=== PATIENT | male | born 1930 | race Caucasian/White ===

== ENCOUNTER 2017-02-24 13:13 | Inpatient (IN) | payer MEDICARE, OTHER ==
[~2017-02-24] VITALS: Ht 170.2 cm; Wt 93.4 kg
[~2017-02-24 13:13] MED LIST: ACET-2154 PO; ASPI81TA31 PO; ATOR20TA PO; BENZ1LOZ PO; CARB-95 PO; CHOL100043 PO; CLOP75TA15 PO; DIVA250T PO; ESCI10TA PO; GABA600T2 PO; HYDR-3326 PO; INSU100C4 SQ; LORA0.5T48 PO; MAGN400T6 PO; NITR0.4T SL; PANT20TA2 PO; ROPI4TAB4 PO; SULF1TAB48 PO; TRAM50TA2 PO
[2017-02-24 13:51] LABS: BASOPHILS % (AUTO) 0.5 % (0.0-2.0); CARBON DIOXIDE 29 mmol/L (21-32); CHLORIDE 106 mmol/L (98-107); CREATININE 1.5 mg/dL (0.6-1.3); EOSINOPHILS # (AUTO) 0.2 K/uL (0.0-0.7); EOSINOPHILS % (AUTO) 3.4 % (0.0-7.0); GLUCOSE 224 mg/dL (74-106); HEMATOCRIT 24.9 % (40-50); HEMOGLOBIN 8.2 G/DL (14.0-18.0); LYMPHOCYTES # (AUTO) 1.5 K/UL (0.8-4.8); LYMPHOCYTES % (AUTO) 25.1 % (20.5-51.5); MEAN CORPUSCULAR HGB CONC 33 g/dL (32.0-37.0); MEAN CORPUSCULAR VOLUME 82.4 FL (82.0-92.0); MONOCYTES # (AUTO) 0.5 K/UL (0.1-1.30); MONOCYTES % (AUTO) 7.7 % (0.0-11.0); NEUTROPHILS # (AUTO) 3.7 K/UL (1.8-8.9); NEUTROPHILS % (AUTO) 63.3 % (38.5-71.5); PLATELET COUNT (AUTO) 264 K/UL (150-450); RED BLOOD CELL COUNT(AUTO) 3.02 MIL/UL (4.7-6.1); UREA NITROGEN, BLOOD 42 mg/dL (7-18); WHITE BLOOD COUNT (AUTO) 5.9 K/UL (4.0-11.2)
[2017-02-24 14:01] LABS: ETHANOL < 3 MG/DL (0-0)
[2017-02-24 14:02] LABS: ACETAMINOPHEN 3.8 ug/mL (10-30); ALANINE AMINOTRANSFERASE 7 U/L (16-63); ALKALINE PHOSPHATASE 107 U/L (50-136); ASPARTATE AMINOTRANSFERASE 15 U/L (15-37); BILIRUBIN,DIRECT 0.1 mg/dL (0.0-0.2); BILIRUBIN,TOTAL 0.2 mg/dL (0.2-1.0); TOTAL PROTEIN, SERUM 7.1 g/dL (6.4-8.2)
[2017-02-24] MEDS ORDERED: IV NORMAL SALINE 500 ML BAG IV ONE (14:15)
--- NOTE | 2017-02-24 14:36 | NUR ---
PT IS MEDICALLY CLEARED BY DR AGUILAR.
--- NOTE | 2017-02-24 14:44 | NUR ---
[facility] CALLED FOR PSYCH EVAL, ETA 45 MIN.
--- NOTE | 2017-02-24 15:03 | NUR ---
URINAL PROVIDED, PT IS HELPED TO USE URINAL, UNABLE TO COLLECT URINE. AWARE.
[2017-02-24] MEDS ORDERED: LEVO25TA9 PO (15:10)
[2017-02-24] MEDS ORDERED: HYDR-4076 PO (15:10)
[2017-02-24] MEDS ORDERED: WARF1TAB47 PO (15:10)
[2017-02-24] MEDS ORDERED: FERR-58 PO (15:10)
[2017-02-24] MEDS ORDERED: INSU100V7 SQ (15:10)
[2017-02-24] MEDS ORDERED: SENN-167 PO (15:10)
[2017-02-24] MEDS ORDERED: OMEP20TA5 PO (15:10)
[2017-02-24] MEDS ORDERED: LIDO30AD10 TD (15:10)
[2017-02-24] MEDS ORDERED: CLON0.1T PO (15:10)
[2017-02-24] MEDS ORDERED: DICL100G31 TP (15:10)
[2017-02-24] MEDS ORDERED: POLY17PO4 PO (15:10)
--- NOTE | 2017-02-24 15:23 | NUR ---
Patient is resting comfortably in bed with eyes closed, NAD noted.
--- NOTE | 2017-02-24 15:37 | NUR ---
ANA FROM PET AT THE BEDSIDE FOR PSYCH EVAL.
[2017-02-24 16:45] VITALS: BP 176/62
--- NOTE | 2017-02-24 16:45 | NUR ---
PT ARRIVED TO UNIT ON GURNEY ACCOMPANIED BY ER NURSE. PT VERY CONFUSED AND DISORIENTED, ASKING FOR BREAKFAST AT THIS TIME. AOX1 TO SELF ONLY. NO AGGRESSIVE OR COMBATIVE BEHAVIOR NOTED AT THIS TIME. PT WILL BE PLACED IN ROOM 139A.
[2017-02-24] MEDS ORDERED: TEMAZEPAM 7.5 MG CAPSULE PO PRN (17:15)
[2017-02-24] MEDS ORDERED: MAGNESIUM HYDROXIDE 30 ML LIQUID UDC PO PRN (17:15)
[2017-02-24] MEDS ORDERED: MAG HYDROX/AL HYDROX/SIMETH 30 ML LIQUID UDC PO PRN (17:15)
[2017-02-24 19:58] VITALS: BP 192/61
[2017-02-24] MEDS: ACETAMINOPHEN 325 MG TABLET PO PRN (20:00)
[2017-02-24] MEDS: LORAZEPAM 1 MG TABLET PO PRN (20:00)
[2017-02-25] MEDS: LORAZEPAM 1 MG TABLET PO PRN (01:02)
--- NOTE | 2017-02-25 07:19 | NUR ---
PATIENT THREW BILATERAL HEARING AIDS ON THE FLOOR, AND BROKE EYE GLASSES. PLACED IN LOCKER WITH NAME.
[2017-02-25 07:30] VITALS: BP 189/79
[2017-02-25] MEDS ORDERED: DICLOFENAC SODIUM XX PRN (09:00)
[2017-02-25] MEDS ORDERED: HYDROCODONE/APAP 5-325MG TABLET PO PRN (09:00)
[2017-02-25] MEDS ORDERED: GABAPENTIN 300 MG CAPSULE PO SCH (09:00)
[2017-02-25] MEDS ORDERED: ACETAMINOPHEN 325 MG TABLET PO PRN (09:00)
[2017-02-25] MEDS: MAGNESIUM OXIDE 400 MG TABLET PO SCH ×2 (10:34→17:28)
[2017-02-25] MEDS: LIDOCAINE 5% PATCH TD SCH (10:34)
[2017-02-25] MEDS: CHOLECALCIFEROL 1,000 UNIT TABLET PO SCH (10:34)
[2017-02-25] MEDS: ropiniROLE 1 MG TABLET PO SCH ×3 (10:34→17:28)
[2017-02-25] MEDS: CARBIDOPA/LEVODOPA CR 25-100MG TABLET.SA PO SCH ×3 (10:34→17:35)
[2017-02-25] MEDS: LEVOTHYROXINE SODIUM 25 MCG TABLET PO SCH (10:34)
[2017-02-25] MEDS: ASPIRIN 81 MG TAB.CHEW PO SCH (10:35)
[2017-02-25] MEDS: SENNOSIDES 1 TABLET PO SCH ×2 (10:35→17:28)
[2017-02-25] MEDS: FERROUS SULFATE 325 MG TABEC PO SCH ×3 (10:35→17:28)
[2017-02-25] MEDS: CLONIDINE HCL 0.1 MG TABLET PO SCH ×2 (10:35→21:00)
[2017-02-25] MEDS: hydrALAZINE HCL 25 MG TABLET PO SCH ×2 (10:35→21:00)
[2017-02-25] MEDS: INSULIN LISPRO 1000 UNITS/10 ML VIAL(HUMALOG) SQ SCH ×2 (11:30→16:30)
[2017-02-25] MEDS: GABAPENTIN 400 MG CAPSULE PO SCH ×2 (13:12→17:28)
--- NOTE | 2017-02-25 15:52 | NUR ---
PT CURRENTLY SITTING ON QING-CHAIR, HIGHLY COMBATIVE, HITTING STAFF, YELLING/SCREAMING PROFANITIES "YOU BITCH" "YOU PIECE OF SHIT". VERBALLY ABUSIVE "I HOPE YOU OF CANCER." HIGHLY AGITATED AND AGGRESSIVE. PT HAS BM, PUTTING HIS HANDS INSIDE HIS PANTS, SMEARING HIS FECES AROUND AND PLACING HIS HANDS IN HIS MOUTH. PT ALSO THREATENING TO KILL STAFF WITH A SHOTGUN. CALLED DR. BRENNAN, ORDERED ZYPREXA 5MG IM ATIVAN 1MG IM NOW. NOTED AND WILL CARRY OUT.
[2017-02-25] MEDS ORDERED: LORAZEPAM 2 MG/1 ML VIAL IM ONE (16:00)
[2017-02-25] MEDS ORDERED: OLANZAPINE 10 MG VIAL IM ONE (16:00)
[2017-02-25 16:52] VITALS: BP 166/69
[2017-02-25] MEDS ORDERED: WARFARIN SODIUM 1 MG TABLET PO SCH (17:00)
[2017-02-25] MEDS ORDERED: WARFARIN SODIUM 3 MG TABLET PO SCH (17:00)
[2017-02-25 20:00] VITALS: BP 133/55
[2017-02-25] MEDS: DIVALPROEX 250 MG TABLET.DR PO SCH (21:00)
[2017-02-25] MEDS: INSULIN DETEMIR 300 UNIT/3 ML CARTRIDGE SQ SCH (21:00)
[2017-02-25] MEDS: PANTOPRAZOLE SODIUM 40 MG TABLET.DR PO SCH (21:00)
[2017-02-25] MEDS: ATORVASTATIN 20 MG TABLET PO SCH (21:00)
[2017-02-25] MEDS: MIRALAX 17 GM POWD.PACK PO SCH (21:00)
[2017-02-25] MEDS: QUETIAPINE FUMARATE 25 MG TABLET PO SCH (21:00)
[2017-02-26] MEDS: LEVOTHYROXINE SODIUM 25 MCG TABLET PO SCH (06:40)
[2017-02-26 07:27] LABS: BASOPHILS % (AUTO) 0.2 % (0.0-2.0); EOSINOPHILS # (AUTO) 0.3 K/uL (0.0-0.7); HEMATOCRIT 27.7 % (40-50); HEMOGLOBIN 9.2 G/DL (14.0-18.0); LYMPHOCYTES # (AUTO) 1.2 K/UL (0.8-4.8); MEAN CORPUSCULAR HEMOGLOBIN 27.3 UUG (27.0-31.0); MEAN CORPUSCULAR HGB CONC 33 g/dL (32.0-37.0); MEAN CORPUSCULAR VOLUME 82.5 FL (82.0-92.0); MONOCYTES # (AUTO) 0.7 K/UL (0.1-1.30); MONOCYTES % (AUTO) 9.1 % (0.0-11.0); NEUTROPHILS # (AUTO) 5.1 K/UL (1.8-8.9); NEUTROPHILS % (AUTO) 70.7 % (38.5-71.5); PLATELET COUNT (AUTO) 277 K/UL (150-450); RED BLOOD CELL COUNT(AUTO) 3.36 MIL/UL (4.7-6.1); WHITE BLOOD COUNT (AUTO) 7.3 K/UL (4.0-11.2)
[2017-02-26 07:30] VITALS: BP 167/67
[2017-02-26 08:03] LABS: THYROID STIMULATING HORMONE 4.44 mIU/mL (0.358-3.740)
[2017-02-26] MEDS: CHOLECALCIFEROL 1,000 UNIT TABLET PO SCH (09:07)
[2017-02-26] MEDS: FERROUS SULFATE 325 MG TABEC PO SCH ×3 (09:07→18:19)
[2017-02-26] MEDS: DIVALPROEX 250 MG TABLET.DR PO SCH ×2 (09:07→20:45)
[2017-02-26] MEDS: ASPIRIN 81 MG TAB.CHEW PO SCH (09:07)
[2017-02-26] MEDS: GABAPENTIN 400 MG CAPSULE PO SCH ×3 (09:08→18:19)
[2017-02-26] MEDS: CLONIDINE HCL 0.1 MG TABLET PO SCH ×2 (09:08→20:55)
[2017-02-26] MEDS: CARBIDOPA/LEVODOPA CR 25-100MG TABLET.SA PO SCH ×3 (09:09→18:19)
[2017-02-26] MEDS: hydrALAZINE HCL 25 MG TABLET PO SCH ×2 (09:09→20:55)
[2017-02-26] MEDS: ESCITALOPRAM OXALATE 10 MG TABLET PO SCH (09:09)
[2017-02-26] MEDS: MAGNESIUM OXIDE 400 MG TABLET PO SCH ×2 (09:11→18:19)
[2017-02-26] MEDS: QUETIAPINE FUMARATE 25 MG TABLET PO SCH ×3 (09:15→20:45)
[2017-02-26] MEDS: SENNOSIDES 1 TABLET PO SCH ×2 (09:16→18:19)
[2017-02-26] MEDS: ropiniROLE 1 MG TABLET PO SCH ×3 (09:16→18:38)
[2017-02-26] MEDS: LIDOCAINE 5% PATCH TD SCH (09:17)
[2017-02-26 09:24] LABS: IRON, SERUM 33 ug/dL (50-175)
[2017-02-26] MEDS: INSULIN LISPRO 1000 UNITS/10 ML VIAL(HUMALOG) SQ SCH ×3 (09:26→16:30)
[2017-02-26 09:35] LABS: FERRITIN 108 ng/mL (26-388)
[2017-02-26] MEDS: LORAZEPAM 1 MG TABLET PO PRN (11:08)
[2017-02-26] MEDS ORDERED: INSULIN REGULAR, HUMAN 300 UNIT/3 ML VIAL SQ PRN (12:00)
[2017-02-26] MEDS ORDERED: DEXTROSE 50% 50 ML DISP.SYRIN IV PRN ×2 (12:00→17:30)
--- NOTE | 2017-02-26 15:01 | NUR ---
04045 Patient sitting on geovanna chair agitated, restless and with period of yelling. 1108 Ativan 1mg po prn for agitation given. 1120 Patient requested to go back to bed , assisted to bed with max assist of 2 person. 1145 BS accucheck done 134 mg /dl. 1200 patient sound asleep , did not eat lunch. Humalog insulin routine suq with meal not administered. 1300 Patient still sound asleep, no s/s respiratory distress. 1500 Patient still asleep, medication due at 1300 not given.
--- NOTE | 2017-02-26 15:02 | NUR ---
Initial DC Plan: The patient resides at [facility] [[address] [place] [address]; [phone]]. YAHAIAR spoke with pt and pt's cousin Kenyatta [[phone]] regarding potential discharge plan. Pt and cousin would like him to return to facility upon discharge. SW will follow up with [facility] to discuss pt's potential discharge plan. YAHAIRA will speak to MD, patient, and family regarding most appropriate discharge plan. SW will form a safe and proper discharge plan.
[2017-02-26 15:04] VITALS: BP 142/64
[2017-02-26] MEDS ORDERED: BLOOD SUGAR DIAGNOSTIC 1 EACH STRIP VI SCH ×2 (16:30→21:00)
[2017-02-26] MEDS ORDERED: WARFARIN SODIUM 5 MG TABLET PO SCH (17:00)
[2017-02-26] MEDS ORDERED: WARFARIN SODIUM 3 MG TABLET PO SCH (17:00)
[2017-02-26] MEDS: BLOOD SUGAR DIAGNOSTIC 1 EACH STRIP VI SCH ×2 (17:29→20:41)
--- NOTE | 2017-02-26 18:42 | NUR ---
1700 Humalog 8 units routine subq with meals held ,patient ate only 10% of his meal , still very sleepy.
[2017-02-26 20:00] VITALS: BP 134/60
[2017-02-26] MEDS: MIRALAX 17 GM POWD.PACK PO SCH (20:45)
[2017-02-26] MEDS: ATORVASTATIN 20 MG TABLET PO SCH (20:45)
[2017-02-26] MEDS: PANTOPRAZOLE SODIUM 40 MG TABLET.DR PO SCH (20:45)
[2017-02-26] MEDS: INSULIN DETEMIR 300 UNIT/3 ML CARTRIDGE SQ SCH (20:51)
[2017-02-26 20:53] VITALS: BP 134/60
[2017-02-27] MEDS: LEVOTHYROXINE SODIUM 25 MCG TABLET PO SCH (06:16)
[2017-02-27] MEDS: BLOOD SUGAR DIAGNOSTIC 1 EACH STRIP VI SCH ×5 (06:35→20:15)
[2017-02-27 07:30] VITALS: BP 160/59
[2017-02-27] MEDS: INSULIN LISPRO 1000 UNITS/10 ML VIAL(HUMALOG) SQ SCH ×3 (07:30→16:30)
[2017-02-27] MEDS: CARBIDOPA/LEVODOPA CR 25-100MG TABLET.SA PO SCH ×3 (09:21→18:00)
[2017-02-27] MEDS: DIVALPROEX 250 MG TABLET.DR PO SCH ×2 (09:22→20:06)
[2017-02-27] MEDS: GABAPENTIN 400 MG CAPSULE PO SCH ×3 (09:22→17:42)
[2017-02-27] MEDS: CLONIDINE HCL 0.1 MG TABLET PO SCH ×2 (09:22→20:07)
[2017-02-27] MEDS: MAGNESIUM OXIDE 400 MG TABLET PO SCH ×2 (09:22→17:43)
[2017-02-27] MEDS: SENNOSIDES 1 TABLET PO SCH ×2 (09:22→17:43)
[2017-02-27] MEDS: ESCITALOPRAM OXALATE 10 MG TABLET PO SCH (09:23)
[2017-02-27] MEDS: CHOLECALCIFEROL 1,000 UNIT TABLET PO SCH (09:23)
[2017-02-27] MEDS: ASPIRIN 81 MG TAB.CHEW PO SCH (09:23)
[2017-02-27] MEDS: FERROUS SULFATE 325 MG TABEC PO SCH ×3 (09:23→17:43)
[2017-02-27] MEDS: hydrALAZINE HCL 25 MG TABLET PO SCH ×2 (09:24→20:06)
[2017-02-27] MEDS: QUETIAPINE FUMARATE 25 MG TABLET PO SCH ×3 (09:24→20:06)
[2017-02-27] MEDS: ropiniROLE 1 MG TABLET PO SCH ×3 (09:25→17:59)
[2017-02-27] MEDS: LIDOCAINE 5% PATCH TD SCH (09:26)
--- NOTE | 2017-02-27 12:48 | NUR ---
1130 ACCU CHECK BS RESULT 72 MG/DL . ROUTINE HUMALOG 8 UNITS NOT ADMINISTERED PATIENT NOT EATING WELL.
[2017-02-27 15:59] VITALS: BP 143/57
[2017-02-27] MEDS ORDERED: WARFARIN SODIUM 5 MG TABLET PO SCH (17:00)
[2017-02-27] MEDS: BOOST GLUCOSE CONTROL 237 ML LIQUID (VANILLA) PO SCH (17:52)
[2017-02-27] MEDS: WARFARIN SODIUM 2 MG TABLET PO SCH (17:56)
--- NOTE | 2017-02-27 18:34 | NUR ---
5770 pATIENT ON ROUTINE HUMALOG 8 UNITS WITH MEAL - NOT ADMINISTERED, DID NO EAT ADEQUATE AMOUNT OF FOOD. PATIENT AWAKE, AGITATED AND NEED PROMPTING IN TAKING HIS MEDICATIONS.
[2017-02-27] MEDS: ATORVASTATIN 20 MG TABLET PO SCH (20:06)
[2017-02-27] MEDS: PANTOPRAZOLE SODIUM 40 MG TABLET.DR PO SCH (20:06)
[2017-02-27 20:07] VITALS: BP 155/62
[2017-02-27] MEDS: MIRALAX 17 GM POWD.PACK PO SCH (20:07)
[2017-02-27] MEDS: INSULIN DETEMIR 300 UNIT/3 ML CARTRIDGE SQ SCH (20:15)
[2017-02-27] MEDS: INSULIN REGULAR, HUMAN 300 UNIT/3 ML VIAL SQ PRN (20:16)
[2017-02-27] MEDS: LORAZEPAM 1 MG TABLET PO PRN (21:48)
[2017-02-27] MEDS: ACETAMINOPHEN 325 MG TABLET PO PRN (22:18)
[2017-02-28] MEDS: LEVOTHYROXINE SODIUM 25 MCG TABLET PO SCH (06:21)
[2017-02-28] MEDS: BLOOD SUGAR DIAGNOSTIC 1 EACH STRIP VI SCH ×4 (06:31→20:50)
[2017-02-28 07:30] VITALS: BP 165/64
[2017-02-28] MEDS: FERROUS SULFATE 325 MG TABEC PO SCH ×3 (08:37→17:36)
[2017-02-28] MEDS: ropiniROLE 1 MG TABLET PO SCH ×3 (08:37→17:37)
[2017-02-28] MEDS: hydrALAZINE HCL 25 MG TABLET PO SCH ×2 (08:38→20:23)
[2017-02-28] MEDS: DIVALPROEX 250 MG TABLET.DR PO SCH ×2 (08:39→20:23)
[2017-02-28] MEDS: CARBIDOPA/LEVODOPA CR 25-100MG TABLET.SA PO SCH ×3 (08:39→17:37)
[2017-02-28] MEDS: MAGNESIUM OXIDE 400 MG TABLET PO SCH ×2 (08:41→17:36)
[2017-02-28] MEDS: ASPIRIN 81 MG TAB.CHEW PO SCH (08:41)
[2017-02-28] MEDS: GABAPENTIN 400 MG CAPSULE PO SCH ×3 (08:41→17:36)
[2017-02-28] MEDS: CHOLECALCIFEROL 1,000 UNIT TABLET PO SCH (08:41)
[2017-02-28] MEDS: QUETIAPINE FUMARATE 25 MG TABLET PO SCH ×3 (08:42→20:22)
[2017-02-28] MEDS: SENNOSIDES 1 TABLET PO SCH ×2 (08:42→17:36)
[2017-02-28] MEDS: ESCITALOPRAM OXALATE 10 MG TABLET PO SCH (08:43)
[2017-02-28] MEDS: CLONIDINE HCL 0.1 MG TABLET PO SCH ×2 (08:43→20:26)
[2017-02-28] MEDS: LIDOCAINE 5% PATCH TD SCH (08:44)
[2017-02-28] MEDS: INSULIN LISPRO 1000 UNITS/10 ML VIAL(HUMALOG) SQ SCH ×3 (08:48→17:52)
[2017-02-28] MEDS: BOOST GLUCOSE CONTROL 237 ML LIQUID (VANILLA) PO SCH ×2 (09:34→17:56)
--- NOTE | 2017-02-28 15:50 | NUR ---
[id number] Patient sound asleep until this time. Medications due at 1130- 1300 held.
[2017-02-28 16:00] VITALS: BP 137/45
[2017-02-28] MEDS: WARFARIN SODIUM 2 MG TABLET PO SCH (17:40)
[2017-02-28] MEDS: INSULIN REGULAR, HUMAN 300 UNIT/3 ML VIAL SQ PRN (19:23)
[2017-02-28 20:21] VITALS: BP 131/50
[2017-02-28] MEDS: ATORVASTATIN 20 MG TABLET PO SCH (20:22)
[2017-02-28] MEDS: PANTOPRAZOLE SODIUM 40 MG TABLET.DR PO SCH (20:22)
[2017-02-28] MEDS: MIRALAX 17 GM POWD.PACK PO SCH (20:24)
--- NOTE | 2017-02-28 20:45 | NUR ---
GPS: PATIENT BLOOD SUGAR 79 MG/DL. HELD LEVEMIR HS COVERAGE. HS SNACK GIVEN.CHARGE NURSE AWARE.CONTINUE PLAN OF CARE.
[2017-02-28] MEDS: INSULIN DETEMIR 300 UNIT/3 ML CARTRIDGE SQ SCH (20:51)
[2017-03-01] MEDS: ACETAMINOPHEN 325 MG TABLET PO PRN (04:35)
--- NOTE | 2017-03-01 04:42 | NUR ---
gps: patient c/o gen: pain.tylenol 650 mg po given per patient requested.
--- NOTE | 2017-03-01 05:53 | NUR ---
GPS: PATIENT STATED I AM FEELING BETTER NOW. PRN FOR PAIN EFFECTIVE.
[2017-03-01] MEDS: LEVOTHYROXINE SODIUM 25 MCG TABLET PO SCH (06:02)
[2017-03-01] MEDS: BLOOD SUGAR DIAGNOSTIC 1 EACH STRIP VI SCH ×6 (06:17→20:59)
--- NOTE | 2017-03-01 06:46 | NUR ---
GPS: REMAIN CALM AND COOPERATIVE WITH MEDS AND CARE. ASSISTED WITH ADL'S. SLEPT 07:30 HRS THROUGH THE NIGHT. CONTINUE MONITORING FOR SAFETY AND COMFORT. REPOSITIONED Q 2 HRS FOR SKIN SAFETY AND COMFORT.
[2017-03-01 07:30] VITALS: BP 133/51
[2017-03-01] MEDS: INSULIN LISPRO 1000 UNITS/10 ML VIAL(HUMALOG) SQ SCH ×3 (07:30→16:30)
[2017-03-01] MEDS: FERROUS SULFATE 325 MG TABEC PO SCH ×3 (08:05→18:51)
[2017-03-01] MEDS: ASPIRIN 81 MG TAB.CHEW PO SCH (08:06)
[2017-03-01] MEDS: SENNOSIDES 1 TABLET PO SCH ×2 (08:06→17:00)
[2017-03-01] MEDS: CHOLECALCIFEROL 1,000 UNIT TABLET PO SCH (08:06)
[2017-03-01] MEDS: MAGNESIUM OXIDE 400 MG TABLET PO SCH ×2 (08:06→18:02)
[2017-03-01] MEDS: GABAPENTIN 400 MG CAPSULE PO SCH ×3 (08:06→18:03)
[2017-03-01] MEDS: QUETIAPINE FUMARATE 25 MG TABLET PO SCH ×3 (08:06→20:59)
[2017-03-01] MEDS: DIVALPROEX 250 MG TABLET.DR PO SCH ×2 (08:06→21:00)
[2017-03-01] MEDS: ESCITALOPRAM OXALATE 10 MG TABLET PO SCH (08:06)
[2017-03-01] MEDS: CARBIDOPA/LEVODOPA CR 25-100MG TABLET.SA PO SCH ×3 (08:06→18:03)
[2017-03-01] MEDS: hydrALAZINE HCL 25 MG TABLET PO SCH ×2 (08:08→21:00)
[2017-03-01] MEDS: CLONIDINE HCL 0.1 MG TABLET PO SCH ×2 (08:09→21:00)
[2017-03-01] MEDS: ropiniROLE 1 MG TABLET PO SCH ×3 (08:09→18:04)
[2017-03-01] MEDS: LIDOCAINE 5% PATCH TD SCH (08:12)
[2017-03-01] MEDS: BOOST GLUCOSE CONTROL 237 ML LIQUID (VANILLA) PO SCH ×2 (09:24→18:59)
--- NOTE | 2017-03-01 09:26 | NUR ---
PATIENT REFUSED TO EAT HIS BREAKFAST, OFFERED HIS NOURISHMENT-DRINK 1/2 PORTION ONLY. TOOK HIS PO MEDICATIONS BNUT HUMALOG ROUTINE AND REGULAR INSULIN SLIDING SCALE NOT ADMINSTERED DUE TO INADEQUATE PO INTAKE.
[2017-03-01] MEDS: INSULIN REGULAR, HUMAN 300 UNIT/3 ML VIAL SQ PRN ×2 (12:30→21:03)
--- NOTE | 2017-03-01 18:23 | NUR ---
172 BS accucheck result 49 mg/dl, patient asymptomatic, alert and ox2, denies blurred vision, no dizziness. Barnes juice 4 oz , milk 118 ml given and fed with his dinner meal. 175 BS accucheck recheck result 76 mg/dl, patient still eating his meal. 1814 Dr Gilbert notified glove machine operator spoke with Lisa, Dr. De Leon will be paged.
[2017-03-01] MEDS: WARFARIN SODIUM 2 MG TABLET PO SCH (18:54)
--- NOTE | 2017-03-01 19:24 | NUR ---
1851 marie Mejia call for Dr. Gilbert returned call informed about patient low blood sugar and unable to collect urine, patient incontinent with orders carried out.
[2017-03-01 19:53] VITALS: BP 165/61
[2017-03-01] MEDS: ATORVASTATIN 20 MG TABLET PO SCH (20:59)
[2017-03-01] MEDS: MIRALAX 17 GM POWD.PACK PO SCH (21:00)
[2017-03-01] MEDS: PANTOPRAZOLE SODIUM 40 MG TABLET.DR PO SCH (21:01)
[2017-03-01] MEDS: INSULIN DETEMIR 300 UNIT/3 ML CARTRIDGE SQ SCH (21:04)
--- NOTE | 2017-03-01 22:00 | NUR ---
Miralax QHS was held due to patient having lose stools. Abdomen noted soft, nontender, nondistended at this time. we will continue to monitor.
--- NOTE | 2017-03-02 02:28 | NUR ---
Urine was collected by straight catheter for urinalysis and C&S per MD orders. Patient tolerated well. we will monitor for results.
[2017-03-02 05:43] LABS: *BILIRUBIN,URIN NEGATIVE (NEGATIVE); *BLOOD, URINE Trace-lysed (NEGATIVE); *CLARITY,URINE CLOUDY (CLEAR); *COLOR,URINE YELLOW (YELLOW); *KETONES,URINE NEGATIVE (NEGATIVE); *PROTEIN,URINE 3+ (NEGATIVE); *UROBILINOGEN,URINE 0.2 E.U./dl (NORMAL); LEUKOCYTE ESTERASE ,URINE 2+ (NEGATIVE); NITRITE, URINE NEGATIVE (NEGATIVE); PH,URINE 6.5 (5.0-8.0); UGLUCOSE NEGATIVE (NEGATIVE)
[2017-03-02 05:56] LABS: BACTERIA,URINE MODERATE /HPF (NONE SEEN); SQUAMOUS EPITHELIAL CELL,UR FEW /HPF (NONE SEEN); WBC,URINE TNTC /HPF (0-3)
[2017-03-02] MEDS: LEVOTHYROXINE SODIUM 25 MCG TABLET PO SCH (06:18)
[2017-03-02] MEDS: BLOOD SUGAR DIAGNOSTIC 1 EACH STRIP VI SCH ×4 (06:56→20:51)
[2017-03-02 07:30] VITALS: BP 132/61
[2017-03-02] MEDS: ropiniROLE 1 MG TABLET PO SCH ×3 (08:40→18:10)
[2017-03-02] MEDS: ASPIRIN 81 MG TAB.CHEW PO SCH (08:40)
[2017-03-02] MEDS: ESCITALOPRAM OXALATE 10 MG TABLET PO SCH (08:40)
[2017-03-02] MEDS: CARBIDOPA/LEVODOPA CR 25-100MG TABLET.SA PO SCH ×3 (08:40→17:41)
[2017-03-02] MEDS: CHOLECALCIFEROL 1,000 UNIT TABLET PO SCH (08:40)
[2017-03-02] MEDS: GABAPENTIN 400 MG CAPSULE PO SCH ×3 (08:40→17:41)
[2017-03-02] MEDS: CLONIDINE HCL 0.1 MG TABLET PO SCH ×2 (08:41→21:26)
[2017-03-02] MEDS: FERROUS SULFATE 325 MG TABEC PO SCH ×3 (08:42→17:41)
[2017-03-02] MEDS: BOOST GLUCOSE CONTROL 237 ML LIQUID (VANILLA) PO SCH ×2 (08:42→18:11)
[2017-03-02] MEDS: DIVALPROEX 250 MG TABLET.DR PO SCH ×2 (08:45→21:25)
[2017-03-02] MEDS: SENNOSIDES 1 TABLET PO SCH ×2 (08:47→17:41)
[2017-03-02] MEDS: MAGNESIUM OXIDE 400 MG TABLET PO SCH ×2 (08:47→17:41)
[2017-03-02] MEDS: QUETIAPINE FUMARATE 25 MG TABLET PO SCH ×3 (08:47→21:27)
[2017-03-02] MEDS: INSULIN LISPRO 1000 UNITS/10 ML VIAL(HUMALOG) SQ SCH ×3 (08:54→16:30)
[2017-03-02] MEDS: hydrALAZINE HCL 25 MG TABLET PO SCH ×2 (09:00→21:26)
[2017-03-02] MEDS: LIDOCAINE 5% PATCH TD SCH (09:02)
[2017-03-02] MEDS ORDERED: LEVOFLOXACIN 250 MG TABLET PO SCH (11:45)
--- NOTE | 2017-03-02 12:00 | NUR ---
1130 patient BS accucheck result 74 mg/dl, asymptomatic. 1200 Lunch served, patient refused but drink his nourishment, boost glucose control 8 fld. oz.
--- NOTE | 2017-03-02 13:00 | NUR ---
[address] Gilbert regarding abnomal urinalysis result through operartor spoke with Ella and juan will paged .1142 Dr. Gilbert returned call informed about abnomal urinalysis result, with antibiotic order. Again, called Dr. Gilbert regarding antibiotic levaquin will interact with seroquel and lexapro per pharmacy. cancelled levaquin and orderd nitrofurantoin 100 mg po q 12 hrs., orders carried out.
[2017-03-02] MEDS: NITROFURANTOIN/NITROFURAN MAC 100 MG CAPSULE PO SCH ×2 (13:17→21:26)
[2017-03-02 15:00] VITALS: BP 136/52
[2017-03-02] MEDS ORDERED: WARFARIN SODIUM 2 MG TABLET PO SCH (17:00)
[2017-03-02] MEDS ORDERED: WARFARIN SODIUM 5 MG TABLET PO SCH (17:00)
--- NOTE | 2017-03-02 18:40 | NUR ---
Humalog 6 units routine with meals not administered, patient not eating enough. Drink only the nourishment, Boost glucose control. 1630 BS accucheck is 112 mg/dl.
[2017-03-02] MEDS: LORAZEPAM 1 MG TABLET PO PRN (19:49)
[2017-03-02 20:00] VITALS: BP 154/64
[2017-03-02] MEDS: INSULIN REGULAR, HUMAN 300 UNIT/3 ML VIAL SQ PRN (21:20)
[2017-03-02] MEDS: INSULIN DETEMIR 300 UNIT/3 ML CARTRIDGE SQ SCH (21:21)
[2017-03-02] MEDS: MIRALAX 17 GM POWD.PACK PO SCH (21:25)
[2017-03-02] MEDS: ATORVASTATIN 20 MG TABLET PO SCH (21:25)
[2017-03-02] MEDS: PANTOPRAZOLE SODIUM 40 MG TABLET.DR PO SCH (21:26)
--- NOTE | 2017-03-02 22:58 | NUR ---
At approx 1930, patient was noted yelling for "Help" upon arriving to his room he was noted agitated and delusional. He was accusing one of his roommate to have a cigarette in his hands and smoking in front of him. He4 demanded to have his roommate be removed form his room. Multiple redirection were given; however, ineffective. Ativan 1mg PO PRN was given at approx 194. Rechecks at 2099. effective, patient was calm and cooperative resting comfortable in his room. medication compliant as well.
[2017-03-03] MEDS: LEVOTHYROXINE SODIUM 25 MCG TABLET PO SCH (06:32)
[2017-03-03] MEDS: BLOOD SUGAR DIAGNOSTIC 1 EACH STRIP VI SCH ×4 (06:40→20:27)
--- NOTE | 2017-03-03 07:26 | NUR ---
Recheck BG level after 60cc [place] juice was given. results 64. we will continue to monitor.
[2017-03-03 07:30] VITALS: BP 161/55
[2017-03-03] MEDS: INSULIN LISPRO 1000 UNITS/10 ML VIAL(HUMALOG) SQ SCH ×3 (07:30→16:30)
--- NOTE | 2017-03-03 07:39 | NUR ---
Held pt's routine Humalog injection due to pt's blood glucose of 64.
[2017-03-03] MEDS: LIDOCAINE 5% PATCH TD SCH (08:26)
[2017-03-03] MEDS: QUETIAPINE FUMARATE 25 MG TABLET PO SCH ×2 (08:27→17:17)
[2017-03-03] MEDS: GABAPENTIN 400 MG CAPSULE PO SCH ×3 (08:27→17:17)
[2017-03-03] MEDS: SENNOSIDES 1 TABLET PO SCH ×2 (08:27→17:17)
[2017-03-03] MEDS: NITROFURANTOIN/NITROFURAN MAC 100 MG CAPSULE PO SCH ×2 (08:27→20:34)
[2017-03-03] MEDS: CARBIDOPA/LEVODOPA CR 25-100MG TABLET.SA PO SCH ×3 (08:27→17:17)
[2017-03-03] MEDS: ropiniROLE 1 MG TABLET PO SCH ×3 (08:27→17:16)
[2017-03-03] MEDS: ESCITALOPRAM OXALATE 10 MG TABLET PO SCH (08:27)
[2017-03-03] MEDS: CHOLECALCIFEROL 1,000 UNIT TABLET PO SCH (08:27)
[2017-03-03] MEDS: FERROUS SULFATE 325 MG TABEC PO SCH ×3 (08:27→17:17)
[2017-03-03] MEDS: ASPIRIN 81 MG TAB.CHEW PO SCH (08:27)
[2017-03-03] MEDS: DIVALPROEX 250 MG TABLET.DR PO SCH ×2 (08:27→20:34)
[2017-03-03] MEDS: MAGNESIUM OXIDE 400 MG TABLET PO SCH ×2 (08:27→17:17)
[2017-03-03] MEDS: hydrALAZINE HCL 25 MG TABLET PO SCH ×2 (08:28→20:33)
[2017-03-03] MEDS: CLONIDINE HCL 0.1 MG TABLET PO SCH ×2 (08:28→20:33)
[2017-03-03] MEDS: BOOST GLUCOSE CONTROL 237 ML LIQUID (VANILLA) PO SCH ×2 (08:28→17:17)
[2017-03-03] MEDS: LORAZEPAM 1 MG TABLET PO PRN (10:45)
[2017-03-03] MEDS: INSULIN REGULAR, HUMAN 300 UNIT/3 ML VIAL SQ PRN (12:42)
[2017-03-03] MEDS ORDERED: LORAZEPAM 1 MG TABLET PO PRN (13:30)
[2017-03-03 15:39] VITALS: BP 109/51
--- NOTE | 2017-03-03 16:55 | NUR ---
Pt blood glucose noted to be 59. [place] juice given. Asymptomatic. Unable to give routine Humalog as ordered for Hypoglycemia.
[2017-03-03 20:32] VITALS: BP 140/56
[2017-03-03] MEDS: MIRALAX 17 GM POWD.PACK PO SCH (20:32)
[2017-03-03] MEDS: PANTOPRAZOLE SODIUM 40 MG TABLET.DR PO SCH (20:34)
[2017-03-03] MEDS: ATORVASTATIN 20 MG TABLET PO SCH (20:34)
[2017-03-03] MEDS: QUETIAPINE FUMARATE 100 MG TABLET PO SCH (20:34)
[2017-03-03] MEDS ORDERED: QUETIAPINE FUMARATE 25 MG TABLET PO SCH (21:00)
[2017-03-04] MEDS: BLOOD SUGAR DIAGNOSTIC 1 EACH STRIP VI SCH ×4 (06:43→20:02)
[2017-03-04] MEDS: LEVOTHYROXINE SODIUM 25 MCG TABLET PO SCH (06:43)
[2017-03-04 07:30] VITALS: BP 158/59
[2017-03-04] MEDS: INSULIN LISPRO 1000 UNITS/10 ML VIAL(HUMALOG) SQ SCH (07:30)
--- NOTE | 2017-03-04 08:51 | NUR ---
Humalog insulin 6 units not administered, patuikristopher ate only 255 of his breakfast and his accucheck BS at 0630 78 mg/dl. Addendum: 03/04/17 at 1002 by [facility] patient only ate 25 % of his breakfast meal.
[2017-03-04] MEDS: QUETIAPINE FUMARATE 25 MG TABLET PO SCH ×2 (08:53→17:32)
[2017-03-04] MEDS: MAGNESIUM OXIDE 400 MG TABLET PO SCH ×2 (08:54→17:32)
[2017-03-04] MEDS: SENNOSIDES 1 TABLET PO SCH ×2 (08:54→17:32)
[2017-03-04] MEDS: CLONIDINE HCL 0.1 MG TABLET PO SCH ×2 (08:54→20:00)
[2017-03-04] MEDS: ASPIRIN 81 MG TAB.CHEW PO SCH (08:54)
[2017-03-04] MEDS: NITROFURANTOIN/NITROFURAN MAC 100 MG CAPSULE PO SCH ×2 (08:54→20:01)
[2017-03-04] MEDS: CARBIDOPA/LEVODOPA CR 25-100MG TABLET.SA PO SCH ×3 (08:54→17:32)
[2017-03-04] MEDS: hydrALAZINE HCL 25 MG TABLET PO SCH ×2 (08:55→20:00)
[2017-03-04] MEDS: FERROUS SULFATE 325 MG TABEC PO SCH ×3 (09:02→17:32)
[2017-03-04] MEDS: ropiniROLE 1 MG TABLET PO SCH ×3 (09:03→17:32)
[2017-03-04] MEDS: CHOLECALCIFEROL 1,000 UNIT TABLET PO SCH (09:03)
[2017-03-04] MEDS: GABAPENTIN 400 MG CAPSULE PO SCH ×3 (09:03→17:32)
[2017-03-04] MEDS: ESCITALOPRAM OXALATE 10 MG TABLET PO SCH (09:03)
[2017-03-04] MEDS: DIVALPROEX 250 MG TABLET.DR PO SCH ×2 (09:03→20:01)
[2017-03-04] MEDS: LIDOCAINE 5% PATCH TD SCH (09:04)
--- NOTE | 2017-03-04 09:32 | NUR ---
Recheck patient HR prior giving hydralazine , 60/ min
[2017-03-04] MEDS: BOOST GLUCOSE CONTROL 237 ML LIQUID (VANILLA) PO SCH ×2 (09:43→17:59)
[2017-03-04] MEDS: LORAZEPAM 0.5 MG TABLET PO PRN (11:26)
[2017-03-04] MEDS: INSULIN REGULAR, HUMAN 300 UNIT/3 ML VIAL SQ PRN ×2 (12:48→20:03)
[2017-03-04 16:15] VITALS: BP 153/55
[2017-03-04] MEDS: QUETIAPINE FUMARATE 100 MG TABLET PO SCH (20:00)
[2017-03-04] MEDS: PANTOPRAZOLE SODIUM 40 MG TABLET.DR PO SCH (20:01)
[2017-03-04] MEDS: MIRALAX 17 GM POWD.PACK PO SCH (20:01)
[2017-03-04] MEDS: ATORVASTATIN 20 MG TABLET PO SCH (20:01)
[2017-03-04 20:18] VITALS: BP 127/64
[2017-03-04 20:30] VITALS: BP 125/61
--- NOTE | 2017-03-05 01:19 | NUR ---
HELD HS ANN D/T LOW HR, GAVE HYDRALAZINE AFTER RE-CHECK, NOW 60.
[2017-03-05] MEDS: LEVOTHYROXINE SODIUM 25 MCG TABLET PO SCH (06:17)
[2017-03-05] MEDS: BLOOD SUGAR DIAGNOSTIC 1 EACH STRIP VI SCH ×4 (06:33→20:07)
[2017-03-05 06:46] LABS: BASOPHILS % (AUTO) 0.5 % (0.0-2.0); EOSINOPHILS # (AUTO) 0.3 K/uL (0.0-0.7); EOSINOPHILS % (AUTO) 6.5 % (0.0-7.0); HEMATOCRIT 28.8 % (40-50); HEMOGLOBIN 9.4 G/DL (14.0-18.0); LYMPHOCYTES # (AUTO) 1.5 K/UL (0.8-4.8); LYMPHOCYTES % (AUTO) 28.3 % (20.5-51.5); MEAN CORPUSCULAR HEMOGLOBIN 27.4 UUG (27.0-31.0); MEAN CORPUSCULAR HGB CONC 33 g/dL (32.0-37.0); MEAN CORPUSCULAR VOLUME 83.7 FL (82.0-92.0); MONOCYTES # (AUTO) 0.5 K/UL (0.1-1.30); MONOCYTES % (AUTO) 9.7 % (0.0-11.0); NEUTROPHILS # (AUTO) 2.8 K/UL (1.8-8.9); PLATELET COUNT (AUTO) 235 K/UL (150-450); RED BLOOD CELL COUNT(AUTO) 3.45 MIL/UL (4.7-6.1); WHITE BLOOD COUNT (AUTO) 5.1 K/UL (4.0-11.2)
[2017-03-05 06:56] LABS: ALANINE AMINOTRANSFERASE 8 U/L (16-63); ALKALINE PHOSPHATASE 124 U/L (50-136); ASPARTATE AMINOTRANSFERASE 20 U/L (15-37); BILIRUBIN,TOTAL 0.3 mg/dL (0.2-1.0); CARBON DIOXIDE 32 mmol/L (21-32); CHLORIDE 108 mmol/L (98-107); CREATININE 1.6 mg/dL (0.6-1.3); GLUCOSE 137 mg/dL (74-106); PHOSPHOROUS 4.2 mg/dL (2.5-4.9); TOTAL PROTEIN, SERUM 7.5 g/dL (6.4-8.2); UREA NITROGEN, BLOOD 38 mg/dL (7-18)
[2017-03-05 07:46] VITALS: BP 146/55
[2017-03-05] MEDS: NITROFURANTOIN/NITROFURAN MAC 100 MG CAPSULE PO SCH ×2 (08:30→20:15)
[2017-03-05] MEDS: SENNOSIDES 1 TABLET PO SCH ×2 (08:30→17:27)
[2017-03-05] MEDS: DIVALPROEX 250 MG TABLET.DR PO SCH ×2 (08:30→20:15)
[2017-03-05] MEDS: ASPIRIN 81 MG TAB.CHEW PO SCH (08:31)
[2017-03-05] MEDS: CARBIDOPA/LEVODOPA CR 25-100MG TABLET.SA PO SCH ×3 (08:31→17:27)
[2017-03-05] MEDS: CLONIDINE HCL 0.1 MG TABLET PO SCH ×2 (08:31→21:35)
[2017-03-05] MEDS: CHOLECALCIFEROL 1,000 UNIT TABLET PO SCH (08:31)
[2017-03-05] MEDS: QUETIAPINE FUMARATE 25 MG TABLET PO SCH ×2 (08:32→17:27)
[2017-03-05] MEDS: hydrALAZINE HCL 25 MG TABLET PO SCH ×2 (08:33→21:34)
[2017-03-05] MEDS: FERROUS SULFATE 325 MG TABEC PO SCH ×3 (08:33→17:27)
[2017-03-05] MEDS: BOOST GLUCOSE CONTROL 237 ML LIQUID (VANILLA) PO SCH ×2 (08:33→17:30)
[2017-03-05] MEDS: LIDOCAINE 5% PATCH TD SCH (08:35)
[2017-03-05] MEDS: GABAPENTIN 400 MG CAPSULE PO SCH ×3 (08:36→17:27)
[2017-03-05] MEDS: ropiniROLE 1 MG TABLET PO SCH ×3 (08:37→17:28)
[2017-03-05] MEDS: ESCITALOPRAM OXALATE 10 MG TABLET PO SCH (08:39)
[2017-03-05] MEDS ORDERED: MAGNESIUM OXIDE 400 MG TABLET PO SCH (09:00)
[2017-03-05] MEDS: LORAZEPAM 0.5 MG TABLET PO PRN (11:37)
[2017-03-05] MEDS: INSULIN REGULAR, HUMAN 300 UNIT/3 ML VIAL SQ PRN ×2 (12:02→20:18)
[2017-03-05 16:37] VITALS: BP 131/60
[2017-03-05] MEDS ORDERED: WARFARIN SODIUM 1 MG TABLET PO SCH (17:00)
[2017-03-05] MEDS: QUETIAPINE FUMARATE 100 MG TABLET PO SCH (20:15)
[2017-03-05] MEDS: ATORVASTATIN 20 MG TABLET PO SCH (20:16)
[2017-03-05] MEDS: PANTOPRAZOLE SODIUM 40 MG TABLET.DR PO SCH (20:16)
[2017-03-05 20:17] VITALS: BP 143/57
[2017-03-05] MEDS: MIRALAX 17 GM POWD.PACK PO SCH (21:34)
[2017-03-06] MEDS: LEVOTHYROXINE SODIUM 25 MCG TABLET PO SCH (06:31)
[2017-03-06] MEDS: BLOOD SUGAR DIAGNOSTIC 1 EACH STRIP VI SCH ×2 (06:44→11:24)
[2017-03-06 07:30] VITALS: BP 169/58
[2017-03-06] MEDS: INSULIN REGULAR, HUMAN 300 UNIT/3 ML VIAL SQ PRN ×2 (07:44→11:37)
[2017-03-06] MEDS: BOOST GLUCOSE CONTROL 237 ML LIQUID (VANILLA) PO SCH (07:48)
[2017-03-06] MEDS: LIDOCAINE 5% PATCH TD SCH (08:15)
[2017-03-06] MEDS: QUETIAPINE FUMARATE 25 MG TABLET PO SCH (08:15)
[2017-03-06] MEDS: ESCITALOPRAM OXALATE 10 MG TABLET PO SCH (08:16)
[2017-03-06] MEDS: CARBIDOPA/LEVODOPA CR 25-100MG TABLET.SA PO SCH ×2 (08:16→12:03)
[2017-03-06] MEDS: SENNOSIDES 1 TABLET PO SCH (08:16)
[2017-03-06] MEDS: CLONIDINE HCL 0.1 MG TABLET PO SCH (08:16)
[2017-03-06] MEDS: FERROUS SULFATE 325 MG TABEC PO SCH ×2 (08:16→11:49)
[2017-03-06] MEDS: NITROFURANTOIN/NITROFURAN MAC 100 MG CAPSULE PO SCH (08:16)
[2017-03-06] MEDS: ASPIRIN 81 MG TAB.CHEW PO SCH (08:16)
[2017-03-06] MEDS: ropiniROLE 1 MG TABLET PO SCH ×2 (08:16→12:00)
[2017-03-06] MEDS: CHOLECALCIFEROL 1,000 UNIT TABLET PO SCH (08:16)
[2017-03-06] MEDS: GABAPENTIN 400 MG CAPSULE PO SCH ×2 (08:16→12:04)
[2017-03-06] MEDS: DIVALPROEX 250 MG TABLET.DR PO SCH (08:16)
[2017-03-06 08:17] VITALS: BP 169/58
[2017-03-06] MEDS: hydrALAZINE HCL 25 MG TABLET PO SCH (08:17)
--- NOTE | 2017-03-06 11:20 | NUR ---
DC Note: Patient will be discharged to [facility] [[address], [place] [address]; ) via ambulance at 12pm. Patient's cousin Kenyatta [[phone]] is aware and agreeable with discharge plans. Patient is aware and agreeable with discharge plans. Patient spoke with Nan at [facility] to confirm discharge plan. Patient will follow up with Dr. Tejeda (Psychiatrist) [[phone]] and Dr. Gilbert (Home Health Caregiver) [[phone]]
--- NOTE | 2017-03-06 14:56 | NUR ---
Pt left unit on [facility] accompanied by 2 labor relations analyst. No aggressive or combative behavior noted. Pleasant. Denies pain or discomfort. V/S stable. Left with all noted belongings and paperwork. In no acute distress.
== END 2017-03-06 14:58 | DRG 885 ==
LOC: ER 13:13 → GPS 16:22
PROVIDERS: ADMIT Psychiatry & Neurology Psychiatry; ATTEND Internal Medicine
DX: F29 Unspecified psychosis not due to a substance or known physiological condition (principal); N17.0 Acute kidney failure with tubular necrosis; N18.3 Chronic kidney disease, stage 3 (moderate); B95.2 Enterococcus as the cause of diseases classified elsewhere; E11.65 Type 2 diabetes mellitus with hyperglycemia; G93.40 Encephalopathy, unspecified; N39.0 Urinary tract infection, site not specified; F03.91 Unspecified dementia, unspecified severity, with behavioral disturbance; E11.22 Type 2 diabetes mellitus with diabetic chronic kidney disease; G20 Parkinson's disease; I12.9 Hypertensive chronic kidney disease with stage 1 through stage 4 chronic kidney disease, or unspecified chronic kidney disease; F31.9 Bipolar disorder, unspecified; Z79.01 Long term (current) use of anticoagulants; D63.8 Anemia in other chronic diseases classified elsewhere; Z95.2 Presence of prosthetic heart valve; F41.9 Anxiety disorder, unspecified; Z79.899 Other long term (current) drug therapy
CPT/HCPCS: 36415; 70450; 71010; 76770; 82746; 83550; 83735; 84100; 84443; 85025; 85610; 85730; 86592; 87077; 87086; 93005; 97110; 97116; 97530; A4663; C1758; G0480; G0480-TC; J1815; J2060; J2358; J3490; J7040

== ENCOUNTER 2017-08-06 13:43 | Inpatient (IN) | payer MEDICARE, OTHER ==
[~2017-08-06] VITALS: Ht 162.6 cm; Wt 88.9 kg
[~2017-08-06 13:43] MED LIST changes: -BENZ1LOZ PO; +CLON0.1T PO; -CLOP75TA15 PO; +DICL100G31 TP; -DIVA250T PO; -ESCI10TA PO; +FERR325T24 PO; +HYDR-4076 PO; +INSU100V7 SQ; +LEVO25TA9 PO; +LIDO30AD10 TD; -LORA0.5T48 PO; -NITR0.4T SL; +OMEP20TA5 PO; -PANT20TA2 PO; +POLY17PO4 PO; +SENN-167 PO; -SULF1TAB48 PO; -TRAM50TA2 PO; +WARF1TAB47 PO
[2017-08-06] MEDS ORDERED: TEMA15CA PO (14:26)
[2017-08-06] MEDS ORDERED: ESCI10TA PO (14:26)
[2017-08-06] MEDS ORDERED: QUET25TA PO (14:26)
[2017-08-06] MEDS ORDERED: LORA1TAB PO (14:26)
[2017-08-06] MEDS ORDERED: QUET100T PO (14:26)
[2017-08-06] MEDS ORDERED: AMLO10TA2 PO (14:26)
[2017-08-06] MEDS ORDERED: ACCU-CHEK (14:26)
[2017-08-06] MEDS ORDERED: DIVA500T7 PO (14:26)
[2017-08-06] MEDS ORDERED: DEXT15DR6 EACHEYE (14:26)
[2017-08-06 14:43] LABS: BASOPHILS % (AUTO) 0.4 % (0.0-2.0); EOSINOPHILS # (AUTO) 0.3 K/uL (0.0-0.7); EOSINOPHILS % (AUTO) 4.7 % (0.0-7.0); HEMATOCRIT 27.3 % (36.7-47.1); HEMOGLOBIN 8.9 g/dL (12.5-16.3); LYMPHOCYTES # (AUTO) 1.3 K/uL (20.0-40.0); LYMPHOCYTES % (AUTO) 22.5 % (20.5-51.5); MEAN CORPUSCULAR HEMOGLOBIN 26.8 uug (23.8-33.4); MEAN CORPUSCULAR HGB CONC 33 g/dL (32.5-36.3); MEAN CORPUSCULAR VOLUME 81.7 fL (73.0-96.2); MONOCYTES # (AUTO) 0.4 K/uL (2.0-10.0); MONOCYTES % (AUTO) 7.8 % (0.0-11.0); NEUTROPHILS # (AUTO) 3.7 K/uL (1.8-8.9); NEUTROPHILS % (AUTO) 64.6 % (38.5-71.5); PLATELET COUNT (AUTO) 206 K/uL (152-348); RED BLOOD CELL COUNT(AUTO) 3.34 MIL/uL (4.06-5.63); WHITE BLOOD COUNT (AUTO) 5.7 K/uL (3.6-10.2)
[2017-08-06 14:54] LABS: ETHANOL < 3 MG/DL (0-0)
[2017-08-06] MEDS ORDERED: LORAZEPAM 2 MG/1 ML VIAL IM ONE (14:54)
[2017-08-06 15:02] LABS: ALKALINE PHOSPHATASE 114 U/L (50-136); ASPARTATE AMINOTRANSFERASE 16 U/L (15-37); BILIRUBIN,DIRECT 0.1 mg/dL (0.0-0.2); BILIRUBIN,TOTAL 0.2 mg/dL (0.2-1.0); CARBON DIOXIDE 26 mmol/L (21-32); CHLORIDE 104 mmol/L (98-107); CREATININE 1.5 mg/dL (0.6-1.3); GLUCOSE 199 mg/dL (74-106); POTASSIUM 4.8 mmol/L (3.5-5.1); TOTAL PROTEIN, SERUM 7.2 g/dL (6.4-8.2); UREA NITROGEN, BLOOD 33 mg/dL (7-18)
[2017-08-06 15:04] LABS: ACETAMINOPHEN < 2.0 ug/mL (10-30)
--- NOTE | 2017-08-06 15:07 | NUR ---
Pt is agitated, yelling out loud and keeps trying to get out of the gurney. Nursing office called for 1:1 sitter for safety due to fall risk, security called for observation until a sitter is available.
--- NOTE | 2017-08-06 15:10 | NUR ---
PT VERY AGITATED, CONFUSED, YELLING, DISTURBING OTHER PT INSPITE OF TRYING TO ORIENT THE PT AND PROVIDED THE COMFORT MEASURES.
[2017-08-06 15:13] LABS: ALANINE AMINOTRANSFERASE 6 U/L (16-63)
--- NOTE | 2017-08-06 15:14 | NUR ---
Security has not arrived, called again.
[2017-08-06] MEDS ORDERED: LORAZEPAM 2 MG/1 ML VIAL ONE (15:16)
--- NOTE | 2017-08-06 15:30 | NUR ---
SECURITY AT BEDSIDE.
--- NOTE | 2017-08-06 15:51 | NUR ---
PT STILL AGITATED, YELLING LOOKING FOR SELMA
--- NOTE | 2017-08-06 15:53 | NUR ---
Pt requested I call his cousin Bassam ( [phone] ) and let her know that he is in the hospital. I spoke with Bassam and she stated she is aware of patient's curreny situation.
[2017-08-06] MEDS ORDERED: OLANZAPINE 10 MG VIAL IM ONE (16:00)
--- NOTE | 2017-08-06 16:43 | NUR ---
PT REFUSES TO CHANGE THE DIAPER PERINEAL HYGIENE
--- NOTE | 2017-08-06 18:25 | NUR ---
PT TRANSFERESD TO MHU IN STABLE CONDITION.
--- NOTE | 2017-08-06 18:40 | NUR ---
PT RECEIVED FROM ER AT 1830. PT IS TRANSFERED TO BED, SKIN ASSESSMENT DONE, SOME BRUISING NOTED ON ABDOMINAL AREA, REDNESS ON LEFT HEEL. PT IS A/O X 2. PT IS IRRITABLE, BUT ALLOWED TO BE CHANGED. PT DENIES DISTRESS. REPORT IS ENDORSED TO THE UPCOMING SHIFT.
[2017-08-06] MEDS ORDERED: TEMAZEPAM 7.5 MG CAPSULE PO PRN (19:00)
[2017-08-06] MEDS ORDERED: MAGNESIUM HYDROXIDE 30 ML LIQUID UDC PO PRN (19:00)
[2017-08-06] MEDS ORDERED: MAG HYDROX/AL HYDROX/SIMETH 30 ML LIQUID UDC PO PRN (19:00)
[2017-08-06] MEDS ORDERED: LORAZEPAM 1 MG TABLET PO PRN (19:00)
[2017-08-06 20:00] VITALS: BP_SYST 192; BP_DIAS 71; BP_DIAS 91
[2017-08-06] MEDS ORDERED: CLONIDINE HCL 0.1 MG TABLET PO ONE (20:30)
[2017-08-06] MEDS ORDERED: AMLODIPINE 10 MG TABLET PO ONE (20:30)
[2017-08-06] MEDS ORDERED: CARB-93 PO (20:42)
[2017-08-06] MEDS ORDERED: HYDROCODONE/APAP 5-325MG TABLET PO PRN (20:45)
[2017-08-06] MEDS ORDERED: HOME MED MISCELLANEOUS PO SCH (21:00)
[2017-08-06] MEDS: PANTOPRAZOLE SODIUM 40 MG TABLET.DR PO SCH (21:57)
[2017-08-06] MEDS: MIRALAX 17 GM POWD.PACK PO SCH (21:57)
[2017-08-06] MEDS: ATORVASTATIN 20 MG TABLET PO SCH (21:57)
[2017-08-06] MEDS: INSULIN GLARGINE,HUM 300 UNITS/3 ML CARTRIDGE SQ SCH (21:59)
[2017-08-06] MEDS: BLOOD SUGAR DIAGNOSTIC 1 EACH STRIP VI SCH (22:01)
[2017-08-06] MEDS: ACETAMINOPHEN 325 MG TABLET PO PRN (22:48)
--- NOTE | 2017-08-06 23:00 | NUR ---
received to care, lying in bed, at 1900, from the emergency room, on a 72 hour hold for gravely disabled, a transfer from [facility]. according to the hold, he was agitated, striking out at staff, and ripping the hand last pattern grader, right off the wall. upon arrival, hwe was very agitated, yelling out intermittently, difficult to redirect, or orient to reality. his b/p on arrival was 192/91, hr 73. he was given norvasc and catapres at 2028. he was continually yelling and trying to climb out of bed, so he was placed in the geovanna chair. ativan was given at at 2128, for constant yelling, and retoril, at 2247. as of 2299, his b/p is now 177/57, hr 76. he continues to yell out intermittently, but appears calmer. currently at nurses station, for safety. will continue to monitor closely.
--- NOTE | 2017-08-07 06:00 | NUR ---
slept 1.75 hours last night. remains needy attention seeking, and verbally abusive. continues to holler intermittently. difficult to redirect. shower given. currently up in geovanna chair, talking to self. will continue to monitor closely.
[2017-08-07] MEDS: LEVOTHYROXINE SODIUM 25 MCG TABLET PO SCH (06:05)
[2017-08-07] MEDS: BLOOD SUGAR DIAGNOSTIC 1 EACH STRIP VI SCH ×4 (06:06→21:48)
[2017-08-07 08:00] VITALS: BP 194/78
[2017-08-07] MEDS: AMLODIPINE 10 MG TABLET PO SCH (08:13)
[2017-08-07] MEDS: CARBIDOPA/LEVODOPA 25-100MG TABLET PO SCH ×3 (08:13→17:36)
[2017-08-07] MEDS: MAGNESIUM OXIDE 400 MG TABLET PO SCH ×2 (08:13→16:25)
[2017-08-07] MEDS: CLONIDINE HCL 0.1 MG TABLET PO SCH ×2 (08:13→16:26)
[2017-08-07] MEDS: ASPIRIN 81 MG TAB.CHEW PO SCH (08:13)
[2017-08-07] MEDS: CHOLECALCIFEROL 1,000 UNIT TABLET PO SCH (08:14)
[2017-08-07] MEDS: FERROUS SULFATE 325 MG TABEC PO SCH ×3 (08:14→16:42)
[2017-08-07] MEDS: LIDOCAINE 5% PATCH TD SCH (08:14)
[2017-08-07] MEDS: SENNOSIDES 1 TABLET PO SCH ×2 (08:18→16:25)
[2017-08-07] MEDS: hydrALAZINE HCL 25 MG TABLET PO SCH ×2 (08:19→16:26)
[2017-08-07] MEDS: POLYVINYL ALCOHOL OPHT DROPS 15 ML BOTTLE EACHEYE SCH ×3 (08:19→16:27)
[2017-08-07] MEDS: GABAPENTIN 300 MG CAPSULE PO SCH ×2 (10:13→16:25)
[2017-08-07] MEDS: INSULIN ASPART 300 UNIT/3 ML CARTRIDGE SQ SCH ×2 (12:04→16:30)
--- NOTE | 2017-08-07 14:10 | NUR ---
PT C/O OF CHEST PAIN AND TINGLING IN RIGHT ARM. MD CALLED. EKG AND TROPONIN ORDERED STAT. EKG NORMAL SINUS RHYTHM AND TROPONIN 0.017. PT IS STABLE. PT TAUGHT BREATHING EXERCISES. PT NO LONGER C/O OF CHEST PAIN. CONTINUE TO MONITOR PT.
[2017-08-07 16:00] VITALS: BP 157/54
[2017-08-07] MEDS ORDERED: WARFARIN SODIUM 1 MG TABLET PO SCH (17:00)
--- NOTE | 2017-08-07 17:10 | NUR ---
NOVOLOG HELD PT BLOOD SUGAR 43. PT NO S/S OF HYPOGLYCEMIA AT THIS TIME PT DINNER IS IN FRONT PT EATING DINNER. CONTINUE TO MONITOR PT.
[2017-08-07] MEDS: OLANZAPINE ZYDIS 5 MG TAB.RAPDIS PO SCH (17:35)
--- NOTE | 2017-08-07 17:49 | NUR ---
BLOOD SUGAR RE CHECKED AFTER DINNER PT BLOOD SUGAR 85. PT STABLE AT THIS TIME. CONTINUE TO MONITOR.
--- NOTE | 2017-08-07 18:33 | NUR ---
PT OBSERVED IN THE LOUNGE. CALM, COOPERATIVE, NO SIGNS OF RESPIRATORY DISTRESS. FLAT AFFECT. CONTINUE TO MONITOR.
[2017-08-07 20:53] VITALS: BP 131/52
[2017-08-07] MEDS: PANTOPRAZOLE SODIUM 40 MG TABLET.DR PO SCH (21:00)
[2017-08-07] MEDS: DIVALPROEX SPRINKLE 125 MG CAP.SPRINK PO SCH (21:00)
[2017-08-07] MEDS: ATORVASTATIN 20 MG TABLET PO SCH (21:00)
[2017-08-07] MEDS: INSULIN GLARGINE,HUM 300 UNITS/3 ML CARTRIDGE SQ SCH (21:00)
[2017-08-07] MEDS: MIRALAX 17 GM POWD.PACK PO SCH (21:00)
--- NOTE | 2017-08-07 22:00 | NUR ---
received to care, lying in bed, asleep. pt is easy to awaken, but falls right back to sleep, after being engaged. vital signs are WNL. bedtime medications, including indulin coverage were held, due to the patient being so sleepy, and his hypoglycemic episode, this evening. as of 2200, he continues to sleep. no distress noted. will continue to monitor closely.
[2017-08-08] MEDS ORDERED: ENOXAPARIN SODIUM 100 MG/ML DISP.SYRIN SQ SCH (04:45)
--- NOTE | 2017-08-08 06:00 | NUR ---
slept 7 hours, total. is now awake. is pleasant and cooperative. no distress noted.
[2017-08-08] MEDS: BLOOD SUGAR DIAGNOSTIC 1 EACH STRIP VI SCH ×4 (06:35→21:17)
[2017-08-08] MEDS: LEVOTHYROXINE SODIUM 25 MCG TABLET PO SCH (06:40)
[2017-08-08 07:30] VITALS: BP 156/59
[2017-08-08 08:10] LABS: BASOPHILS % (AUTO) 0.5 % (0.0-2.0); EOSINOPHILS # (AUTO) 0.3 K/uL (0.0-0.7); EOSINOPHILS % (AUTO) 5.1 % (0.0-7.0); HEMATOCRIT 25.5 % (36.7-47.1); HEMOGLOBIN 8.5 g/dL (12.5-16.3); LYMPHOCYTES # (AUTO) 1.6 K/uL (20.0-40.0); LYMPHOCYTES % (AUTO) 26.6 % (20.5-51.5); MEAN CORPUSCULAR HEMOGLOBIN 27.1 uug (23.8-33.4); MEAN CORPUSCULAR HGB CONC 33 g/dL (32.5-36.3); MEAN CORPUSCULAR VOLUME 81.3 fL (73.0-96.2); MONOCYTES # (AUTO) 0.7 K/uL (2.0-10.0); MONOCYTES % (AUTO) 11.2 % (0.0-11.0); NEUTROPHILS # (AUTO) 3.4 K/uL (1.8-8.9); NEUTROPHILS % (AUTO) 56.6 % (38.5-71.5); PLATELET COUNT (AUTO) 209 K/uL (152-348); RED BLOOD CELL COUNT(AUTO) 3.14 MIL/uL (4.06-5.63)
[2017-08-08 08:22] LABS: ALANINE AMINOTRANSFERASE 6 U/L (16-63); ALKALINE PHOSPHATASE 99 U/L (50-136); ASPARTATE AMINOTRANSFERASE 18 U/L (15-37); BILIRUBIN,TOTAL 0.4 mg/dL (0.2-1.0); CARBON DIOXIDE 27 mmol/L (21-32); CHLORIDE 108 mmol/L (98-107); CREATININE 1.7 mg/dL (0.6-1.3); GLUCOSE 104 mg/dL (74-106); MAGNESIUM 2.4 mg/dL (1.8-2.4); PHOSPHOROUS 4.7 mg/dL (2.5-4.9); POTASSIUM 4.2 mmol/L (3.5-5.1); TOTAL PROTEIN, SERUM 6.5 g/dL (6.4-8.2); UREA NITROGEN, BLOOD 35 mg/dL (7-18)
[2017-08-08] MEDS: ESCITALOPRAM OXALATE 10 MG TABLET NG SCH (08:56)
[2017-08-08] MEDS: GABAPENTIN 300 MG CAPSULE PO SCH ×2 (08:56→17:57)
[2017-08-08] MEDS: CARBIDOPA/LEVODOPA 25-100MG TABLET PO SCH ×3 (08:57→17:58)
[2017-08-08] MEDS: hydrALAZINE HCL 25 MG TABLET PO SCH ×3 (08:58→17:59)
[2017-08-08] MEDS: DIVALPROEX SPRINKLE 125 MG CAP.SPRINK PO SCH ×2 (08:59→21:00)
[2017-08-08] MEDS: FERROUS SULFATE 325 MG TABEC PO SCH ×3 (09:00→17:57)
[2017-08-08] MEDS: CHOLECALCIFEROL 1,000 UNIT TABLET PO SCH (09:02)
[2017-08-08] MEDS: LIDOCAINE 5% PATCH TD SCH (09:03)
[2017-08-08] MEDS: OLANZAPINE ZYDIS 5 MG TAB.RAPDIS PO SCH ×2 (09:03→17:57)
[2017-08-08] MEDS: AMLODIPINE 10 MG TABLET PO SCH (09:04)
[2017-08-08] MEDS: SENNOSIDES 1 TABLET PO SCH ×2 (09:04→17:57)
[2017-08-08] MEDS: MAGNESIUM OXIDE 400 MG TABLET PO SCH ×2 (09:09→18:06)
[2017-08-08] MEDS: POLYVINYL ALCOHOL OPHT DROPS 15 ML BOTTLE EACHEYE SCH ×3 (09:09→18:00)
[2017-08-08] MEDS: ASPIRIN 81 MG TAB.CHEW PO SCH (09:09)
[2017-08-08] MEDS: CLONIDINE HCL 0.1 MG TABLET PO SCH ×3 (09:11→18:05)
[2017-08-08] MEDS: INSULIN ASPART 300 UNIT/3 ML CARTRIDGE SQ SCH ×3 (09:17→16:30)
[2017-08-08 11:00] LABS: THYROID STIMULATING HORMONE 5.636 mIU/mL (0.358-3.740)
--- NOTE | 2017-08-08 13:12 | NUR ---
Initial DC Plan: The patient resides at [facility] [[address] [place] [address]; [phone]]. Patient and his cousin would like patient to return to the facility upon discharge. SW will follow up with MD, patient, and patient's cousin Kenyatta [[phone]] to discuss most appropriate discharge plans. SW will form a safe and proper discharge.
--- NOTE | 2017-08-08 13:43 | NUR ---
Firearms Reporting: YAHAIRA submitted Mental Health Report to [facility] on 08/08.
--- NOTE | 2017-08-08 14:30 | NUR ---
Gps/Installation Specialist- Assisted to his geovanna-chair, mod. assist transfers, was noted to be incontinent of urine, assisted with his hygiene, diaper. Attends and participates in his group therapy, compliant with his routine pm meds. cooperative with staff providing his care,
--- NOTE | 2017-08-08 15:10 | NUR ---
Gps/Senior Administrative Assistant-BS checked by Lucie Camacho was 31, patient was asymtomatic, BS recheck in few minutes was 35. Patient was given 8 oz of milk, 4 oz of OJ as req., and was able to eat sherbert pt. request. Dr Gilbert was called, paged by exchange, awaiting for return call. Patient remains awake skin dry, conversant. Dinner served , patient assisted w/ dinner. Saline lock # 22 inserted to his left forearm , secured with tegaderm, site patent. Assisted with his dinner. Continue to monitor, will recheck BS .
[2017-08-08 16:31] VITALS: BP 118/46
[2017-08-08] MEDS ORDERED: WARFARIN SODIUM 1 MG TABLET PO SCH (17:00)
--- NOTE | 2017-08-08 18:00 | NUR ---
Gps/Insurance Executive- Ate 90 % of his dinner, adequate fluids, BS was rechecked 74. novolog insulin not administered. Awaiting return call from Dr Gilbert.
[2017-08-08] MEDS: WARFARIN SODIUM 3 MG TABLET PO SCH (18:03)
[2017-08-08] MEDS: MIRALAX 17 GM POWD.PACK PO SCH (21:00)
[2017-08-08] MEDS: INSULIN GLARGINE,HUM 300 UNITS/3 ML CARTRIDGE SQ SCH (21:00)
[2017-08-08] MEDS: PANTOPRAZOLE SODIUM 40 MG TABLET.DR PO SCH ×2 (21:00→21:16)
[2017-08-08] MEDS: ATORVASTATIN 20 MG TABLET PO SCH ×2 (21:00→21:16)
[2017-08-08 21:15] VITALS: BP 100/62
[2017-08-09] MEDS: LEVOTHYROXINE SODIUM 25 MCG TABLET PO SCH (05:53)
[2017-08-09] MEDS: BLOOD SUGAR DIAGNOSTIC 1 EACH STRIP VI SCH ×4 (06:02→20:49)
[2017-08-09 06:51] LABS: BASOPHILS % (AUTO) 0.5 % (0.0-2.0); EOSINOPHILS # (AUTO) 0.3 K/uL (0.0-0.7); EOSINOPHILS % (AUTO) 5.7 % (0.0-7.0); HEMATOCRIT 25.9 % (36.7-47.1); HEMOGLOBIN 8.5 g/dL (12.5-16.3); LYMPHOCYTES # (AUTO) 1.3 K/uL (20.0-40.0); LYMPHOCYTES % (AUTO) 21.6 % (20.5-51.5); MEAN CORPUSCULAR HEMOGLOBIN 26.6 uug (23.8-33.4); MEAN CORPUSCULAR HGB CONC 33 g/dL (32.5-36.3); MEAN CORPUSCULAR VOLUME 80.6 fL (73.0-96.2); MONOCYTES # (AUTO) 0.6 K/uL (2.0-10.0); MONOCYTES % (AUTO) 10.7 % (0.0-11.0); NEUTROPHILS # (AUTO) 3.7 K/uL (1.8-8.9); NEUTROPHILS % (AUTO) 61.5 % (38.5-71.5); PLATELET COUNT (AUTO) 204 K/uL (152-348); RED BLOOD CELL COUNT(AUTO) 3.21 MIL/uL (4.06-5.63)
[2017-08-09 07:54] LABS: ALANINE AMINOTRANSFERASE < 6 U/L (16-63); ALKALINE PHOSPHATASE 107 U/L (50-136); ASPARTATE AMINOTRANSFERASE 25 U/L (15-37); BILIRUBIN,TOTAL 0.2 mg/dL (0.2-1.0); CARBON DIOXIDE 26 mmol/L (21-32); CHLORIDE 108 mmol/L (98-107); CREATININE 1.8 mg/dL (0.6-1.3); GLUCOSE 140 mg/dL (74-106); MAGNESIUM 2.5 mg/dL (1.8-2.4); PHOSPHOROUS 4.5 mg/dL (2.5-4.9); POTASSIUM 4.5 mmol/L (3.5-5.1); TOTAL PROTEIN, SERUM 6.9 g/dL (6.4-8.2); UREA NITROGEN, BLOOD 37 mg/dL (7-18)
[2017-08-09] MEDS: ESCITALOPRAM OXALATE 10 MG TABLET NG SCH (08:17)
[2017-08-09] MEDS: SENNOSIDES 1 TABLET PO SCH ×2 (08:18→16:35)
[2017-08-09] MEDS: CARBIDOPA/LEVODOPA 25-100MG TABLET PO SCH ×3 (08:19→17:11)
[2017-08-09] MEDS: DIVALPROEX SPRINKLE 125 MG CAP.SPRINK PO SCH ×2 (08:21→20:49)
[2017-08-09] MEDS: MAGNESIUM OXIDE 400 MG TABLET PO SCH ×2 (08:23→16:35)
[2017-08-09] MEDS: ASPIRIN 81 MG TAB.CHEW PO SCH (08:23)
[2017-08-09] MEDS: GABAPENTIN 300 MG CAPSULE PO SCH ×2 (08:23→16:34)
[2017-08-09] MEDS: hydrALAZINE HCL 25 MG TABLET PO SCH ×2 (08:24→16:36)
[2017-08-09] MEDS: OLANZAPINE ZYDIS 5 MG TAB.RAPDIS PO SCH ×2 (08:24→16:35)
[2017-08-09] MEDS: AMLODIPINE 10 MG TABLET PO SCH (08:25)
[2017-08-09] MEDS: CHOLECALCIFEROL 1,000 UNIT TABLET PO SCH (08:25)
[2017-08-09] MEDS: LIDOCAINE 5% PATCH TD SCH (08:25)
[2017-08-09] MEDS: FERROUS SULFATE 325 MG TABEC PO SCH ×3 (08:26→16:34)
[2017-08-09] MEDS: CLONIDINE HCL 0.1 MG TABLET PO SCH ×3 (08:26→16:35)
[2017-08-09] MEDS: POLYVINYL ALCOHOL OPHT DROPS 15 ML BOTTLE EACHEYE SCH ×3 (08:26→16:36)
[2017-08-09] MEDS: INSULIN ASPART 300 UNIT/3 ML CARTRIDGE SQ SCH ×3 (09:12→17:12)
[2017-08-09] MEDS: ACETAMINOPHEN 325 MG TABLET PO PRN (14:19)
--- NOTE | 2017-08-09 16:26 | NUR ---
Gps/Manager Actuarial- Adeaquate intake fed each meal, eating well.Attended his group therapy, had been cooperative with staff providing his care. Making needs know. Complained of pain on his legs, elevated on pillow. In bed resting, BS 121, skin dry warm to touch .Pale skin dry tenting .Patient was mediciated with tylenol 650 mg.po for leg pain, adequate relief.
[2017-08-09] MEDS: WARFARIN SODIUM 3 MG TABLET PO SCH (17:06)
[2017-08-09] MEDS: ATORVASTATIN 20 MG TABLET PO SCH (20:48)
[2017-08-09] MEDS: MIRALAX 17 GM POWD.PACK PO SCH (20:48)
[2017-08-09] MEDS: PANTOPRAZOLE SODIUM 40 MG TABLET.DR PO SCH (20:49)
[2017-08-09] MEDS: INSULIN GLARGINE,HUM 300 UNITS/3 ML CARTRIDGE SQ SCH (21:00)
[2017-08-09 22:05] VITALS: BP 137/61
--- NOTE | 2017-08-10 05:46 | NUR ---
Patient slept 10 hours. No acute distress noted. No behavioral issues. Med compliant. Vital signs stable. Safety and comfort measures maintained t/o shift.
[2017-08-10] MEDS: LEVOTHYROXINE SODIUM 25 MCG TABLET PO SCH (06:34)
[2017-08-10] MEDS: BLOOD SUGAR DIAGNOSTIC 1 EACH STRIP VI SCH ×4 (06:35→21:50)
[2017-08-10 07:30] VITALS: BP 90/60
[2017-08-10] MEDS: INSULIN ASPART 300 UNIT/3 ML CARTRIDGE SQ SCH ×3 (07:30→18:16)
--- NOTE | 2017-08-10 08:48 | NUR ---
0730 novolog insulin 8 units not administered- patient ate 0nly 25% of his breakfast meal.
[2017-08-10] MEDS: hydrALAZINE HCL 25 MG TABLET PO SCH ×2 (09:00→17:00)
[2017-08-10] MEDS: AMLODIPINE 10 MG TABLET PO SCH (09:00)
[2017-08-10] MEDS: CLONIDINE HCL 0.1 MG TABLET PO SCH ×3 (09:00→17:00)
[2017-08-10] MEDS: POLYVINYL ALCOHOL OPHT DROPS 15 ML BOTTLE EACHEYE SCH ×3 (09:04→18:27)
[2017-08-10] MEDS: DIVALPROEX SPRINKLE 125 MG CAP.SPRINK PO SCH ×2 (09:05→20:42)
[2017-08-10] MEDS: ESCITALOPRAM OXALATE 10 MG TABLET NG SCH (09:09)
[2017-08-10] MEDS: ASPIRIN 81 MG TAB.CHEW PO SCH (09:09)
[2017-08-10] MEDS: GABAPENTIN 300 MG CAPSULE PO SCH ×2 (09:09→18:19)
[2017-08-10] MEDS: CHOLECALCIFEROL 1,000 UNIT TABLET PO SCH (09:09)
[2017-08-10] MEDS: SENNOSIDES 1 TABLET PO SCH ×2 (09:09→18:29)
[2017-08-10] MEDS: FERROUS SULFATE 325 MG TABEC PO SCH ×3 (09:09→18:19)
[2017-08-10] MEDS: MAGNESIUM OXIDE 400 MG TABLET PO SCH ×2 (09:09→18:21)
[2017-08-10] MEDS: CARBIDOPA/LEVODOPA 25-100MG TABLET PO SCH ×3 (09:09→18:18)
[2017-08-10] MEDS: LIDOCAINE 5% PATCH TD SCH (09:12)
[2017-08-10 12:51] LABS: *OCCULT BLOOD STOOL NEGATIVE (NEGATIVE)
[2017-08-10] MEDS: OLANZAPINE ZYDIS 5 MG TAB.RAPDIS PO SCH ×2 (13:20→18:21)
[2017-08-10 15:00] VITALS: BP 111/46
[2017-08-10] MEDS: WARFARIN SODIUM 3 MG TABLET PO SCH (18:24)
[2017-08-10 20:22] VITALS: BP 121/63
[2017-08-10] MEDS: PANTOPRAZOLE SODIUM 40 MG TABLET.DR PO SCH (20:42)
[2017-08-10] MEDS: MIRALAX 17 GM POWD.PACK PO SCH (20:42)
[2017-08-10] MEDS: ATORVASTATIN 20 MG TABLET PO SCH (20:42)
[2017-08-10] MEDS: INSULIN GLARGINE,HUM 300 UNITS/3 ML CARTRIDGE SQ SCH (21:00)
[2017-08-11] MEDS: BLOOD SUGAR DIAGNOSTIC 1 EACH STRIP VI SCH ×4 (07:15→20:34)
[2017-08-11] MEDS: LEVOTHYROXINE SODIUM 25 MCG TABLET PO SCH (07:17)
[2017-08-11 07:30] VITALS: BP 191/56
[2017-08-11] MEDS: INSULIN ASPART 300 UNIT/3 ML CARTRIDGE SQ SCH ×3 (07:54→16:32)
[2017-08-11] MEDS: CHOLECALCIFEROL 1,000 UNIT TABLET PO SCH (08:00)
[2017-08-11] MEDS: ASPIRIN 81 MG TAB.CHEW PO SCH (08:00)
[2017-08-11] MEDS: POLYVINYL ALCOHOL OPHT DROPS 15 ML BOTTLE EACHEYE SCH ×3 (08:00→16:36)
[2017-08-11] MEDS: OLANZAPINE ZYDIS 5 MG TAB.RAPDIS PO SCH ×2 (08:01→16:35)
[2017-08-11] MEDS: GABAPENTIN 300 MG CAPSULE PO SCH ×2 (08:01→16:34)
[2017-08-11] MEDS: ESCITALOPRAM OXALATE 10 MG TABLET NG SCH (08:01)
[2017-08-11] MEDS: CARBIDOPA/LEVODOPA 25-100MG TABLET PO SCH ×3 (08:01→16:33)
[2017-08-11] MEDS: FERROUS SULFATE 325 MG TABEC PO SCH ×3 (08:01→16:35)
[2017-08-11] MEDS: DIVALPROEX SPRINKLE 125 MG CAP.SPRINK PO SCH ×2 (08:02→20:33)
[2017-08-11] MEDS: SENNOSIDES 1 TABLET PO SCH ×2 (08:02→16:35)
[2017-08-11] MEDS: MAGNESIUM OXIDE 400 MG TABLET PO SCH ×2 (08:02→16:34)
[2017-08-11] MEDS: hydrALAZINE HCL 25 MG TABLET PO SCH ×2 (08:02→16:35)
[2017-08-11] MEDS: CLONIDINE HCL 0.1 MG TABLET PO SCH ×3 (08:03→16:34)
[2017-08-11] MEDS: AMLODIPINE 10 MG TABLET PO SCH (08:03)
[2017-08-11] MEDS: LIDOCAINE 5% PATCH TD SCH (08:04)
[2017-08-11 16:33] VITALS: BP 129/52
[2017-08-11] MEDS: WARFARIN SODIUM 4 MG TABLET PO SCH (16:39)
[2017-08-11] MEDS ORDERED: WARFARIN SODIUM 3 MG TABLET PO SCH (17:00)
[2017-08-11] MEDS: MIRALAX 17 GM POWD.PACK PO SCH (20:32)
[2017-08-11] MEDS: PANTOPRAZOLE SODIUM 40 MG TABLET.DR PO SCH (20:33)
[2017-08-11] MEDS: ATORVASTATIN 20 MG TABLET PO SCH (20:33)
[2017-08-11 21:01] VITALS: BP 136/60
[2017-08-12] MEDS: BLOOD SUGAR DIAGNOSTIC 1 EACH STRIP VI SCH ×5 (07:18→22:06)
[2017-08-12] MEDS: LEVOTHYROXINE SODIUM 25 MCG TABLET PO SCH (07:19)
[2017-08-12 07:30] VITALS: BP 164/42
[2017-08-12] MEDS: INSULIN ASPART 300 UNIT/3 ML CARTRIDGE SQ SCH ×3 (07:30→18:07)
[2017-08-12] MEDS: OLANZAPINE ZYDIS 5 MG TAB.RAPDIS PO SCH ×2 (08:59→16:59)
[2017-08-12] MEDS: CARBIDOPA/LEVODOPA 25-100MG TABLET PO SCH ×3 (09:00→16:59)
[2017-08-12] MEDS: hydrALAZINE HCL 25 MG TABLET PO SCH ×2 (09:00→17:00)
[2017-08-12] MEDS: ASPIRIN 81 MG TAB.CHEW PO SCH (09:01)
[2017-08-12] MEDS: MAGNESIUM OXIDE 400 MG TABLET PO SCH ×2 (09:01→16:59)
[2017-08-12] MEDS: AMLODIPINE 10 MG TABLET PO SCH (09:01)
[2017-08-12] MEDS: GABAPENTIN 300 MG CAPSULE PO SCH ×2 (09:01→17:00)
[2017-08-12] MEDS: FERROUS SULFATE 325 MG TABEC PO SCH ×3 (09:01→17:00)
[2017-08-12] MEDS: POLYVINYL ALCOHOL OPHT DROPS 15 ML BOTTLE EACHEYE SCH ×3 (09:04→17:01)
[2017-08-12] MEDS: ESCITALOPRAM OXALATE 10 MG TABLET NG SCH (09:04)
[2017-08-12] MEDS: LIDOCAINE 5% PATCH TD SCH (09:04)
[2017-08-12] MEDS: CLONIDINE HCL 0.1 MG TABLET PO SCH ×3 (09:04→17:00)
[2017-08-12] MEDS: DIVALPROEX SPRINKLE 125 MG CAP.SPRINK PO SCH ×2 (09:04→21:43)
[2017-08-12] MEDS: CHOLECALCIFEROL 1,000 UNIT TABLET PO SCH (09:07)
--- NOTE | 2017-08-12 09:18 | NUR ---
0730 NOVOLOG INSULIN NOT ADMINISYERED -PATIENT ONLY EAT 25% OF HIS BREAKFAST.
[2017-08-12] MEDS: SENNOSIDES 1 TABLET PO SCH ×2 (09:39→17:03)
[2017-08-12] MEDS: WARFARIN SODIUM 4 MG TABLET PO SCH (17:05)
[2017-08-12 17:34] VITALS: BP 148/51
[2017-08-12 19:54] VITALS: BP 117/73
[2017-08-12] MEDS: MIRALAX 17 GM POWD.PACK PO SCH (21:42)
[2017-08-12] MEDS: PANTOPRAZOLE SODIUM 40 MG TABLET.DR PO SCH (21:43)
[2017-08-12] MEDS: ATORVASTATIN 20 MG TABLET PO SCH (21:43)
[2017-08-13] MEDS: BLOOD SUGAR DIAGNOSTIC 1 EACH STRIP VI SCH ×4 (06:32→21:05)
[2017-08-13] MEDS: LEVOTHYROXINE SODIUM 25 MCG TABLET PO SCH (06:39)
[2017-08-13 07:49] VITALS: BP 181/49
[2017-08-13] MEDS: ACETAMINOPHEN 325 MG TABLET PO PRN (08:21)
[2017-08-13] MEDS: CHOLECALCIFEROL 1,000 UNIT TABLET PO SCH (08:21)
[2017-08-13] MEDS: CARBIDOPA/LEVODOPA 25-100MG TABLET PO SCH ×3 (08:21→17:36)
[2017-08-13] MEDS: ESCITALOPRAM OXALATE 10 MG TABLET NG SCH (08:21)
[2017-08-13] MEDS: hydrALAZINE HCL 25 MG TABLET PO SCH ×2 (08:22→17:37)
[2017-08-13] MEDS: FERROUS SULFATE 325 MG TABEC PO SCH ×3 (08:22→17:37)
[2017-08-13] MEDS: MAGNESIUM OXIDE 400 MG TABLET PO SCH ×2 (08:22→17:36)
[2017-08-13] MEDS: ASPIRIN 81 MG TAB.CHEW PO SCH (08:25)
[2017-08-13] MEDS: POLYVINYL ALCOHOL OPHT DROPS 15 ML BOTTLE EACHEYE SCH ×3 (08:25→17:44)
[2017-08-13] MEDS: OLANZAPINE ZYDIS 5 MG TAB.RAPDIS PO SCH ×2 (08:26→17:37)
[2017-08-13] MEDS: AMLODIPINE 10 MG TABLET PO SCH (08:26)
[2017-08-13] MEDS: CLONIDINE HCL 0.1 MG TABLET PO SCH ×3 (08:26→17:38)
[2017-08-13] MEDS: LIDOCAINE 5% PATCH TD SCH (08:30)
[2017-08-13] MEDS: INSULIN ASPART 300 UNIT/3 ML CARTRIDGE SQ SCH ×3 (08:30→16:30)
[2017-08-13] MEDS: GABAPENTIN 300 MG CAPSULE PO SCH ×2 (08:35→17:36)
[2017-08-13] MEDS: DIVALPROEX SPRINKLE 125 MG CAP.SPRINK PO SCH ×2 (08:35→20:23)
[2017-08-13] MEDS: SENNOSIDES 1 TABLET PO SCH ×2 (08:39→17:37)
[2017-08-13 16:46] VITALS: BP 169/53
[2017-08-13] MEDS: WARFARIN SODIUM 4 MG TABLET PO SCH (17:40)
[2017-08-13] MEDS: MIRALAX 17 GM POWD.PACK PO SCH (20:22)
[2017-08-13] MEDS: PANTOPRAZOLE SODIUM 40 MG TABLET.DR PO SCH (20:23)
[2017-08-13] MEDS: ATORVASTATIN 20 MG TABLET PO SCH (20:23)
[2017-08-13 20:52] VITALS: BP 143/70
--- NOTE | 2017-08-13 22:00 | NUR ---
received to care, lying in bed, pleasant upon approach. compliant with medications, and staff direction. as of 2200, he appears to be asleep. no dsitress noted. will continue to monitor closely.
[2017-08-14] MEDS: LEVOTHYROXINE SODIUM 25 MCG TABLET PO SCH (06:38)
[2017-08-14] MEDS: BLOOD SUGAR DIAGNOSTIC 1 EACH STRIP VI SCH ×4 (06:39→21:11)
[2017-08-14 08:00] VITALS: BP 173/47
[2017-08-14] MEDS: LIDOCAINE 5% PATCH TD SCH (08:41)
[2017-08-14] MEDS: POLYVINYL ALCOHOL OPHT DROPS 15 ML BOTTLE EACHEYE SCH ×3 (08:41→18:02)
[2017-08-14] MEDS: CHOLECALCIFEROL 1,000 UNIT TABLET PO SCH (08:42)
[2017-08-14] MEDS: AMLODIPINE 10 MG TABLET PO SCH (08:42)
[2017-08-14] MEDS: DIVALPROEX SPRINKLE 125 MG CAP.SPRINK PO SCH ×2 (08:42→20:47)
[2017-08-14] MEDS: ASPIRIN 81 MG TAB.CHEW PO SCH (08:42)
[2017-08-14] MEDS: GABAPENTIN 300 MG CAPSULE PO SCH ×2 (08:42→17:39)
[2017-08-14] MEDS: SENNOSIDES 1 TABLET PO SCH ×2 (08:43→17:55)
[2017-08-14] MEDS: CLONIDINE HCL 0.1 MG TABLET PO SCH ×3 (08:43→17:40)
[2017-08-14] MEDS: FERROUS SULFATE 325 MG TABEC PO SCH ×3 (08:43→17:39)
[2017-08-14] MEDS: ESCITALOPRAM OXALATE 10 MG TABLET NG SCH (08:43)
[2017-08-14] MEDS: MAGNESIUM OXIDE 400 MG TABLET PO SCH ×2 (08:43→17:40)
[2017-08-14] MEDS: CARBIDOPA/LEVODOPA 25-100MG TABLET PO SCH ×3 (08:43→17:39)
[2017-08-14] MEDS: OLANZAPINE ZYDIS 5 MG TAB.RAPDIS PO SCH ×2 (08:43→17:40)
[2017-08-14] MEDS: hydrALAZINE HCL 25 MG TABLET PO SCH ×2 (08:44→17:39)
[2017-08-14] MEDS: INSULIN ASPART 300 UNIT/3 ML CARTRIDGE SQ SCH ×3 (08:55→17:25)
[2017-08-14 16:00] VITALS: BP 143/45
[2017-08-14] MEDS: WARFARIN SODIUM 4 MG TABLET PO SCH (17:57)
[2017-08-14 20:03] VITALS: BP 121/49
[2017-08-14] MEDS: MIRALAX 17 GM POWD.PACK PO SCH (20:46)
[2017-08-14] MEDS: ATORVASTATIN 20 MG TABLET PO SCH (20:47)
[2017-08-14] MEDS: PANTOPRAZOLE SODIUM 40 MG TABLET.DR PO SCH (20:47)
[2017-08-15] MEDS: LEVOTHYROXINE SODIUM 25 MCG TABLET PO SCH (06:58)
[2017-08-15] MEDS: BLOOD SUGAR DIAGNOSTIC 1 EACH STRIP VI SCH ×2 (06:58→12:32)
[2017-08-15 07:30] VITALS: BP 111/51
[2017-08-15] MEDS: DIVALPROEX SPRINKLE 125 MG CAP.SPRINK PO SCH (08:35)
[2017-08-15] MEDS: CARBIDOPA/LEVODOPA 25-100MG TABLET PO SCH ×2 (08:36→13:19)
[2017-08-15] MEDS: GABAPENTIN 300 MG CAPSULE PO SCH (08:36)
[2017-08-15] MEDS: CLONIDINE HCL 0.1 MG TABLET PO SCH ×2 (08:38→13:20)
[2017-08-15] MEDS: hydrALAZINE HCL 25 MG TABLET PO SCH (08:38)
[2017-08-15] MEDS: CHOLECALCIFEROL 1,000 UNIT TABLET PO SCH (08:38)
[2017-08-15] MEDS: ESCITALOPRAM OXALATE 10 MG TABLET NG SCH (08:39)
[2017-08-15] MEDS: MAGNESIUM OXIDE 400 MG TABLET PO SCH (08:39)
[2017-08-15] MEDS: AMLODIPINE 10 MG TABLET PO SCH (08:39)
[2017-08-15] MEDS: SENNOSIDES 1 TABLET PO SCH (08:39)
[2017-08-15] MEDS: ASPIRIN 81 MG TAB.CHEW PO SCH (08:40)
[2017-08-15] MEDS: FERROUS SULFATE 325 MG TABEC PO SCH ×2 (08:40→13:20)
[2017-08-15] MEDS: OLANZAPINE ZYDIS 5 MG TAB.RAPDIS PO SCH (08:40)
[2017-08-15] MEDS: LIDOCAINE 5% PATCH TD SCH (08:41)
[2017-08-15] MEDS: POLYVINYL ALCOHOL OPHT DROPS 15 ML BOTTLE EACHEYE SCH ×2 (08:41→13:23)
[2017-08-15] MEDS: INSULIN ASPART 300 UNIT/3 ML CARTRIDGE SQ SCH ×2 (08:54→13:18)
--- NOTE | 2017-08-15 09:45 | NUR ---
DC Note: DC Note: Patient will be discharged to [facility] [[address] [place] [address]; ) via ambulance at 12:30pm. Patient's cousin Kenyatta [[phone]] is aware and agreeable with discharge plans. Patient is aware and agreeable with discharge plans. Patient spoke with Princess at [facility] to confirm discharge plans. Patient will follow up with Dr. Tejeda (Psychiatrist) and Dr. Gilbert (Sulfur Burner).
[2017-08-15 13:20] VITALS: BP 125/62
--- NOTE | 2017-08-15 14:00 | NUR ---
1100 Called report t [facility] facility spoke with Hina Ruiz RN lending activities supervisor and report given regarding patient will be discharged back to their facility via ambulance. staff occupational therapist, Hina informed about patient diagnosis, medications to continue after hospital discharged. 1345 Patient picked up by ambulance and discharged to [facility] mentally and medically stable. Patient denies SI/HI. No delusion/ no hallucination noted.
== END 2017-08-15 13:45 | DRG 885 ==
LOC: ER 13:43 → GPS 18:07
PROVIDERS: ADMIT Psychiatry & Neurology Psychiatry; ATTEND Internal Medicine
DX: F31.64 Bipolar disorder, current episode mixed, severe, with psychotic features (principal); E11.22 Type 2 diabetes mellitus with diabetic chronic kidney disease; E11.649 Type 2 diabetes mellitus with hypoglycemia without coma; F03.91 Unspecified dementia, unspecified severity, with behavioral disturbance; G20 Parkinson's disease; R13.10 Dysphagia, unspecified; Z95.2 Presence of prosthetic heart valve; Z79.01 Long term (current) use of anticoagulants; E78.5 Hyperlipidemia, unspecified; Z79.4 Long term (current) use of insulin; Z79.899 Other long term (current) drug therapy; I13.10 Hypertensive heart and chronic kidney disease without heart failure, with stage 1 through stage 4 chronic kidney disease, or unspecified chronic kidney disease; N18.9 Chronic kidney disease, unspecified; D63.8 Anemia in other chronic diseases classified elsewhere; I35.0 Nonrheumatic aortic (valve) stenosis; Z79.82 Long term (current) use of aspirin
CPT/HCPCS: 36415; 70030-TC; 71045; 80164; 82747; 83735; 84100; 84443; 85014; 85025; 85610; 86592; 92610; 93005; 97110; 97116; 97530; A4663; G0480; G0480-TC; J1815; J2060; J2358